=== PATIENT | female | born 1980 ===

== ENCOUNTER 2018-10-13 20:37 | Emergency (ER) | payer OTHER ==
[~2018-10-13] VITALS: Ht 162.6 cm; Wt 81.6 kg
[2018-10-13] MEDS ORDERED: SYNTHROID50 MCG (21:22)
== END 2018-10-13 23:54 | disposition home or self-care (01) ==
LOC: ER 20:37
DX: R53.81 Other malaise (principal); M94.0 Chondrocostal junction syndrome [Tietze]; M54.2 Cervicalgia